=== PATIENT | male | born 1990 | race Caucasian/White ===

== ENCOUNTER 2019-04-28 10:23 | Emergency (ER) | payer OTHER ==
[2019-04-28 10:34] VITALS: BP 121/65
--- NOTE | 2019-04-28 10:37 | UC ---
Throat Pain/Nasal Jasvir HPI - HPI Summary HPI Summary: sx started 1 week ago--sore throat, bilat gland tenderness, occ. cough - History of Current Complaint Chief Complaint: UCGeneralIllness Stated Complaint: ST,EAR PAIN Time Seen by Provider: 04/28/19 10:36 Hx Obtained From: Patient Onset/Duration: Sudden Onset, Lasting Days Severity: Mild Pain Intensity: 2 Associated Signs & Symptoms: Positive: Dysphagia - Allergies/Home Medications Allergies/Adverse Reactions: Allergies Allergy/AdvReac Type Severity Reaction Status Date / Time cefaclor [[facility] Allergy Intermediate Rash Verified 04/28/19 10:35 PMH/Surg Hx/FS Hx/Imm Hx Previously Healthy: Yes - Surgical History Surgical History: Yes Surgery Procedure, Year, and Place: wisdom teeth extraction - Family History Known Family History: Positive: Hypertension - Social History Alcohol Use: Occasionally Substance Use Type: None Smoking Status (MU): Former Smoker Type: Smokeless Tobacco Review of Systems All Other Systems Reviewed And Are Negative: Yes ENT: Positive: Sore Throat, Ear Ache Is Patient Immunocompromised?: No Physical Exam Appearance: Well-Nourished, Ill-Appearing, Pain Distress Vital Signs: Initial Vital Signs Temp 97.6 F 04/28/19 10:31 Pulse 63 04/28/19 10:31 Resp 14 04/28/19 10:31 BP 121/65 04/28/19 10:31 Pulse Ox 99 04/28/19 10:31 Vital Signs Reviewed: Yes Eye Exam: Normal ENT: Positive: Pharyngeal erythema - with PND, Nasal congestion, TM bulging, TM dull, TM red - left TM Dental Exam: Normal Neck exam: Normal Respiratory Exam: Normal Respiratory: Positive: Chest non-tender, Lungs clear, Normal breath sounds Cardiovascular Exam: Normal Cardiovascular: Positive: RRR, No Murmur, Pulses Normal Musculoskeletal Exam: Normal Neurological Exam: Normal Psychological Exam: Normal Skin Exam: Normal Throat Pain/Nasal Course/Dx - Course Course Of Treatment: hx obtained, exam performed ,meds reviewed, - Differential Dx/Diagnosis Differential Diagnosis/HQI/PQRI: Otitis Media, Pharyngitis, Sinusitis, URI Provider Diagnosis: Sinusitis Discharge ED - Sign-Out/Discharge Documenting (check all that apply): Patient Departure All imaging exams completed and their final reports reviewed: No Studies - Discharge Plan Condition: Stable Disposition: HOME Patient Education Materials: Sinusitis (ED) Referrals: Jada Gonzalez MD [Primary Care Provider] - Additional Instructions: 1. take the medication as prescribed. 2. Increase fluids and get plenty of rest. 3. Ibuprofen for pain 4. FOllow up as needed. - Billing Disposition and Condition Condition: STABLE Disposition: Home
== END 2019-04-28 10:58 | disposition home or self-care (01) ==
LOC: UCCORT 10:23
DX: J32.9 Chronic sinusitis, unspecified (principal); J02.9 Acute pharyngitis, unspecified; R05 Cough; H73.892 Other specified disorders of tympanic membrane, left ear; Z87.891 Personal history of nicotine dependence; Z88.1 Allergy status to other antibiotic agents
CPT/HCPCS: 87651; 99212; G0463